=== PATIENT | female | born 1985 | race Caucasian/White ===

== ENCOUNTER 2023-10-23 16:45 | Inpatient (IN) | payer OTHER ==
[~2023-10-23] VITALS: Ht 167.6 cm; Wt 97.3 kg
[2023-10-23] VITALS (29 sets, daily range): BP systolic 87–133; BP diastolic 46–88
[2023-10-23] MEDS ORDERED: Lactated Ringer's 1,000 ML IV SCH ×3 (17:50→17:55)
[2023-10-23] MEDS ORDERED: Carboprost Tromethamine 250 MCG/ML 1ML Amp IM PRN (17:50)
[2023-10-23] MEDS ORDERED: Tranexamic Acid 1,000 MG in NS 100 ML IV SCH (17:50)
[2023-10-23] MEDS ORDERED: ePHEDrine Sulfate 50 MG/ML 1ML Injection XX PRN (17:50)
[2023-10-23] MEDS ORDERED: FentaNYL 2mcg/ml-Bup 0.1% Epd 250 ML EPI PRN (17:50)
[2023-10-23] MEDS ORDERED: Methylergonovine Maleate 0.2MG / ML 1ML Amp IM PRN (17:50)
[2023-10-23] MEDS ORDERED: Oxytocin 10 Unit / ML Vial IM PRN (17:50)
[2023-10-23] MEDS ORDERED: Misoprostol 200 MCG Tab PR PRN (17:50)
[2023-10-23] MEDS ORDERED: Acetaminophen 500 MG Tab PO PRN (17:55)
[2023-10-23] MEDS ORDERED: Misoprostol 200 MCG Tab BC SCH (17:55)
[2023-10-23] MEDS ORDERED: Calcium Carbonate 500 MG Tab Chew PO SCH (17:55)
[2023-10-23] MEDS ORDERED: OXYTOCIN/RINGER'S LACTATE 500 ML IV SCH (17:55)
[2023-10-23] MEDS ORDERED: Ondansetron HCl 2 MG / ML 2ML Vial IV PRN ×2 (17:55→20:05)
[2023-10-23] MEDS ORDERED: ONE-A-DAY PREN1 EAC2 PO (18:05)
[2023-10-23] MEDS ORDERED: ACYC400 PO (18:05)
[2023-10-23] MEDS ORDERED: Lactated Ringer's 1,000 ML IV ONE (18:16)
[2023-10-23] MEDS ORDERED: OXYTOCIN/RINGER'S LACTATE 500 ML IV ONE (18:16)
[2023-10-23 18:21] LABS: BASOPHILS ABSOLUTE AUTO 0.02 K/mm3 (0.00-0.23); BASOPHILS PERCENT AUTO 0 % (0-2); EOSINOPHILS ABSOLUTE AUTO 0.07 K/mm3 (0.00-0.68); EOSINOPHILS PERCENT AUTO 1 % (0-6); Hematocrit 38.2 % (33.0-51.0); Hemoglobin 13.1 g/dL (11.5-16.0); IMMATURE GRAN ABSOLUTE AUTO 0.05 K/mm3 (0.00-0.10); IMMATURE GRAN PERCENT AUTO 1 % (0-1); LYMPHOCYTES PERCENT AUTO 17 % (21-46); MONOCYTES ABSOLUTE AUTO 0.87 K/mm3 (0.16-1.47); MONOCYTES PERCENT AUTO 9 % (4-13); Mean Corpuscular HGB 31.5 pg (26.0-34.0); Mean Corpuscular HGB Conc 34.3 g/dL (31.5-36.5); Mean Corpuscular Volume 92 fL (80-100); Mean Platelet Volume 10.2 fL (9.1-12.4); NEUTROPHILS PERCENT AUTO 73 % (41-73); Platelet Count 203 K/mm3 (150-400); RDW Coefficient Variation 13.2 % (11.7-14.2); RDW Standard Deviation 44.2 fL (35.1-46.3); Red Blood Cell Count 4.16 M/mm3 (3.80-5.20); White Blood Cell Count 10.11 K/mm3 (4.00-11.30)
[2023-10-23] MEDS ORDERED: Naloxone HCl 0.4MG / ML 1ML Vial IV PRN (20:05)
[2023-10-23] MEDS ORDERED: DiphenhydrAMINE HCl 50 MG/ML 1ML Vial IV PRN (20:05)
[2023-10-23] MEDS ORDERED: ePHEDrine Sulfate 50 MG/ML 1ML Injection IV PRN (20:05)
[2023-10-24] VITALS (13 sets, daily range): BP systolic 100–140; BP diastolic 52–65
[2023-10-24] MEDS ORDERED: Benzocaine Topical Anesthetic Spray 60GM TOP PRN (03:55)
[2023-10-24] MEDS ORDERED: Misoprostol 200 MCG Tab PR PRN (03:55)
[2023-10-24] MEDS ORDERED: Acetaminophen 325 MG TABLET PO PRN (04:00)
[2023-10-24] MEDS ORDERED: Methylergonovine Maleate 0.2MG / ML 1ML Amp IM PRN (04:00)
[2023-10-24] MEDS ORDERED: Lactated Ringer's 1,000 ML IV SCH (04:00)
[2023-10-24] MEDS ORDERED: Docusate Sodium 100 MG Cap PO PRN (04:00)
[2023-10-24] MEDS ORDERED: Ibuprofen 400 MG Tab PO PRN (04:00)
[2023-10-24] MEDS ORDERED: OXYTOCIN/RINGER'S LACTATE 500 ML IV SCH (04:05)
[2023-10-24] MEDS ORDERED: Rho(D) Immune Globulin 300 MCG / SYR IM ONE ×2 (04:05→08:35)
[2023-10-24] MEDS ORDERED: Witch Hazel/Glycerin PADS TOP PRN (04:05)
[2023-10-24] MEDS ORDERED: CeFAZolin Sodium 1,000 MG in NS 50 ML IV SCH (04:10)
[2023-10-24] MEDS ORDERED: CeFAZolin Sodium 1000 mg Vial ONE ×3 (04:45→20:23)
[2023-10-24] MEDS ORDERED: NS 50 ML IV ONE ×3 (04:46→20:23)
[2023-10-24] MEDS ORDERED: Ketorolac Tromethamine 30mg Vial IV SCH (05:00)
[2023-10-24 05:57] LABS: BASOPHILS ABSOLUTE AUTO 0.03 K/mm3 (0.00-0.23); BASOPHILS PERCENT AUTO 0 % (0-2); EOSINOPHILS ABSOLUTE AUTO 0.01 K/mm3 (0.00-0.68); EOSINOPHILS PERCENT AUTO 0 % (0-6); Hematocrit 34.6 % (33.0-51.0); Hemoglobin 11.8 g/dL (11.5-16.0); IMMATURE GRAN PERCENT AUTO 1 % (0-1); LYMPHOCYTES ABSOLUTE AUTO 0.88 K/mm3 (0.84-5.20); LYMPHOCYTES PERCENT AUTO 5 % (21-46); MONOCYTES ABSOLUTE AUTO 1.57 K/mm3 (0.16-1.47); MONOCYTES PERCENT AUTO 9 % (4-13); Mean Corpuscular HGB 31.4 pg (26.0-34.0); Mean Corpuscular HGB Conc 34.1 g/dL (31.5-36.5); Mean Corpuscular Volume 92 fL (80-100); Mean Platelet Volume 10.3 fL (9.1-12.4); NEUTROPHILS ABSOLUTE AUTO 15.02 K/mm3 (1.96-9.15); NEUTROPHILS PERCENT AUTO 85 % (41-73); Platelet Count 172 K/mm3 (150-400); RDW Coefficient Variation 13.1 % (11.7-14.2); RDW Standard Deviation 43.8 fL (35.1-46.3); Red Blood Cell Count 3.76 M/mm3 (3.80-5.20); White Blood Cell Count 17.61 K/mm3 (4.00-11.30)
[2023-10-24] MEDS ORDERED: Prenatal Vit/FE Fumarate/FA 1 Tab PO SCH (09:00)
[2023-10-24] MEDS ORDERED: ePHEDrine Sulfate 50 MG/ML 1ML Injection IV PRN (12:35)
[2023-10-24] MEDS ORDERED: Naloxone HCl 0.4MG / ML 1ML Vial IV PRN (12:35)
[2023-10-24] MEDS ORDERED: DiphenhydrAMINE HCl 50 MG/ML 1ML Vial IV PRN (12:35)
[2023-10-24] MEDS ORDERED: Ondansetron HCl 2 MG / ML 2ML Vial IV PRN (12:40)
[2023-10-24] MEDS ORDERED: FentaNYL 2mcg/ml-Bup 0.1% Epd 250 ML EPI PRN (12:50)
[2023-10-24] MEDS ORDERED: Ketorolac Tromethamine 30mg Vial IV ONE (20:50)
[2023-10-25 03:09] VITALS: BP 105/58
[2023-10-25] MEDS ORDERED: IBUP400 PO (08:24)
[2023-10-25 08:28] VITALS: BP 125/70
== END 2023-10-25 10:54 | disposition home or self-care (01) | DRG 560 ==
LOC: BC 16:45 → OBS 16:45 → BC 17:41
PROVIDERS: ADMIT Obstetrics & Gynecology
PROC: 10E0XZZ Delivery of Products of Conception, External Approach (ICD-10-PCS; principal; 2023-10-23)
PROC: 0HQ9XZZ Repair Perineum Skin, External Approach (ICD-10-PCS; 2023-10-23)
DX: O48.0 Post-term pregnancy (principal); Z3A.40 40 weeks gestation of pregnancy; Z37.0 Single live birth; Z88.1 Allergy status to other antibiotic agents; O70.0 First degree perineal laceration during delivery
CPT/HCPCS: 36415; 51702; 85025; 85460; 86850; 86870; 86900; 86901; A9270; J0690; J1885; J2590; J2791; J7120